=== PATIENT | female | born 1955 | race Caucasian/White ===

== ENCOUNTER → 2018-01-13 07:24 | Outpatient (CLI) | payer OTHER, SELFPAY ==
--- NOTE | 2018-01-13 07:26 | BI_ITS ---
MAMMOGRAPHY - BILATERAL SCREENING REASON FOR EXAM: Female, 62 years old. Routine annual screening examination. PERTINENT HISTORY: Non-contributory. TECHNIQUE: Digital bilateral breast curtis (3D mammographic acquisition) in the CC and MLO projections. 2-D mediolateral oblique (MLO) and craniocaudad (CC) views of both breasts were obtained. CAD: Full Field Digital Mammography with Computer Added Detection was performed. COMPARISON: Comparison is made with prior study dated October 04, 2016 and August 14, 2015. FINDINGS: Breast Composition: There are scattered areas of fibroglandular density. There are no dominant masses or suspicious calcifications. No other significant abnormalities are identified. There has been no significant change since the prior study. BI/SCREENING MAMM (CAD), BILAT IMPRESSION: Stable bilateral screening mammogram. Yearly follow-up mammogram recommended. (A) ASSESSMENT CATEGORY: BIRADS Category 1: Negative. A letter regarding these results will be sent to the patient by the facility within 30 days. Approximately 10% of breast cancers are not detected by mammography. A normal mammogram should not delay biopsy of a clinically suspicious abnormality. [id number] Electronically Signed: Mitchell Schneider MD at 9:21 EST Tel [phone], Service support ,
--- OUTSIDE RECORDS SUMMARY | 2018-03-10 01:15 | XMS RPT_ITS ---
:1955 Author Organization [facility] Care Team Providers Name Role Phone JENIFFER VILLANUEVA Referring Unavailable JENIFFER VILLANUEVA Primary Care Unavailable JENIFFER VILLANUEVA Consulting Unavailable Mitchell Clayton Attending Unavailable PROBLEMS PROBLEMS No Problem Records FoundPROCEDURES PROCEDURES No Procedure Records FoundRESULTS RESULTS SCREENING MAMM (CAD), Observed: 01/13/2018 Status: F Source: [facility] 7:27 AM [facility] [place] [place] REPOSITORY [facility] Imaging Services [address] [place] [id number] SCREENING MAMM (CAD), BIL MR#: [id number] Acct: [id number] Name: VINCE CLAYTON Rep #: [id number] : 1955 F 62 From: Mitchell Clayton MD PCP: OUT OF TOWN DOCTOR Status: REG CLI Study: SCREENING MAMM (CAD), BILAT Date of Exam: 01/13/18 Exam# [id number] Ordering Dr: Mitchell Clayton MD MAMMOGRAPHY - BILATERAL SCREENING REASON FOR EXAM: Female, 62 years old. Routine annual screening examination. PERTINENT HISTORY: Non-contributory. TECHNIQUE: Digital bilateral breast curtis (3D mammographic acquisition) in the CC and MLO projections. 2-D mediolateral oblique (MLO) and craniocaudad (CC) views of both breasts were obtained. CAD: Full Field Digital Mammography with Computer Added Detection was performed. COMPARISON: Comparison is made with prior study dated October 04, 2016 and August 14, 2015. FINDINGS: Breast Composition: There are scattered areas of fibroglandular density. There are no dominant masses or suspicious calcifications. No other significant abnormalities are identified. There has been no significant change since the prior study. BI/SCREENING MAMM (CAD), BILAT IMPRESSION: Stable bilateral screening mammogram. Yearly follow-up mammogram recommended. (A) ASSESSMENT CATEGORY: BIRADS Category 1: Negative. A letter regarding these results will be sent to the patient by the facility within 30 days. Approximately 10% of breast cancers are not detected by mammography. A normal mammogram should not delay biopsy of a clinically suspicious abnormality. [id number] Electronically Signed: Mitchell Clayton MD at 9:21 EST Tel [phone], Service support , CC: Mitchell Clayton MD; OUT OF TOWN DOCTOR Seaman: Signed LIPID PANEL Collected: 07/05/2017 Status: F Source: [facility] 10:57 AM PRIMARY CARE REPOSITORY Order Comment: Items in this order include: Urinalysis, Vit D 25 OH (Total), Lipid Panel, CBC with differential, Free T4, Comprehensive Metabolic Panel, TSH, , , , , Fastin hours TYPE CODE TESTS RESULT OUT OF REFERENCE UNITS RANGE LAB CO1(LOINC) <200 mg/dL Cholesterol 194 LAB CO2(LOINC) <150 mg/dL Triglyceride 118 LAB CO3(LOINC) >50 mg/dL HDL 54 LAB CO59(LOINC <30 mg/dl ) VLDL-Calc 24 LAB CO60(LOINC <130 mg/dL ) LDL-Calc 116 LAB CO62(LOINC <4.0 ) Chol/HDL Ratio 3.6 LAB CO63(LOINC LDL Goal + 30 ) Non-HDL Chol 140 Result Comment: LDL and Non-HDL goal dependent upon individual risk Performed By: #### C8, C47, C215, C408, C400, C3763, C304 #### [facility], IncFranco[facility] [address] [place] [address] COMPREHENSIVE METABOLIC Collected: 07/05/2017 Status: F Source: [facility] 10:57 AM PRIMARY CARE REPOSITORY Order Comment: Fastin hours TYPE CODE TESTS RESULT OUT OF REFERENCE UNITS RANGE LAB CO12(LOINC 6.3-8.4 g/dL ) T. Protein 7.5 LAB CO10(LOINC 3.5-5.0 g/dL ) Albumin 4.7 LAB CO16(LOINC 0.2-1.3 mg/dL ) Total Bili 0.5 LAB CO13(LOINC 23-159 U/L ) Alk Phos 84 LAB CO15(LOINC 11-43 U/L ) AST 30 LAB CO14(LOINC 10-52 U/L ) ALT 49 LAB CO19(LOINC 135-145 mmol/L ) Sodium 142 LAB CO20(LOINC 3.5-5.3 mmol/L ) Potassium 4.7 LAB CO22(LOINC 98-107 mmol/L ) Chloride 105 LAB CO21(LOINC 22.0-30.0 mmol/L ) CO2 22.7 LAB CO28(LOINC 74-100 mg/dL ) Glucose High 110 LAB CO25(LOINC 8.5-10.5 mg/dL ) Calcium 10.2 LAB CO23(LOINC 6-22 mg/dL ) BUN 15 LAB CO24(LOINC 0.1-1.2 mg/dL ) Creatinine 0.6 LAB CO516(LOIN >60 mL/min per C) 1.73 GFR 102 Result Comment: The GFR estimate is not adjusted for race. If the patient's race is -Bulgarian, the GFR estimate must be multiplied by a factor of 1.21. Performed By: #### C8, C47, C215, C408, C400, C3763, C304 #### [facility] [address] [place] [address] CBC WITH DIFFERENTIAL Collected: 07/05/2017 Status: F Source: [facility] 10:57 AM PRIMARY CARE REPOSITORY Order Comment: Items in this order include: Urinalysis, Vit D 25 OH (Total), Lipid Panel, CBC with differential, Free T4, Comprehensive Metabolic Panel, TSH, , , , , Fastin hours TYPE CODE TESTS RESULT OUT OF RANGE REFERENCE UNITS LAB CO81(LOINC) 3.8-10.6 K CUMM WBC 7.5 LAB CO82(LOINC) 3.80-5.10 M CUMM RBC 4.57 LAB CO83(LOINC) 11.5-15.5 g/dL HGB 13.3 LAB CO84(LOINC) 37.0-47.0 % HCT 39.4 LAB CO85(LOINC) 78.0-100.0 fL MCV 86.2 LAB CO86(LOINC) 27.0-31.0 pg MCH 29.2 LAB CO87(LOINC) 32.0-36.0 g/dL MCHC 33.8 LAB CO88(LOINC) 11.5-15.5 % RDW 13.3 LAB CO89(LOINC) 130-400 K CUMM PLT 294 LAB CO90(LOINC) 7.4-10.4 fL MPV 9.5 LAB CO91(LOINC) 40.0-74.0 % MOLLY % 59.6 LAB CO92(LOINC) 14.0-46.0 % LYMPH % 30.0 LAB CO93(LOINC) 4.0-13.0 % MONO % 8.6 LAB CO94(LOINC) 0.0-7.0 % EOS % 0.9 LAB CO95(LOINC) 0.0-3.0 % BASO % 0.9 LAB CO96(LOINC) 1.8-7.8 K CUMM MOLLY # 4.5 LAB CO97(LOINC) 0.7-4.5 K CUMM LYMPH # 2.2 LAB CO98(LOINC) 0.1-1.0 K CUMM MONO # 0.6 LAB CO99(LOINC) 0.0-0.4 K CUMM EOS # 0.1 LAB CO100(LOINC 0.0-0.2 K CUMM ) BASO # 0.1 Performed By: #### C8, C47, C215, C408, C400, C3763, C304 #### [facility] [address] [place] [address] FREE T4 Collected: 07/05/2017 Status: F Source: [facility] 10:57 AM PRIMARY CARE REPOSITORY Order Comment: Items in this order include: Urinalysis, Vit D 25 OH (Total), Lipid Panel, CBC with differential, Free T4, Comprehensive Metabolic Panel, TSH, , , , , Fastin hours TYPE CODE TESTS RESULT OUT OF RANGE REFERENCE UNITS LAB CO38(LOINC) 0.7-1.8 ng/dL Free T4 1.4 Performed By: #### C8, C47, C215, C408, C400, C3763, C304 #### [facility] [address] [place] [address] TSH Collected: 07/05/2017 Status: F Source: [facility] 10:57 AM PRIMARY CARE REPOSITORY Order Comment: Items in this order include: Urinalysis, Vit D 25 OH (Total), Lipid Panel, CBC with differential, Free T4, Comprehensive Metabolic Panel, TSH, , , , , Fastin hours TYPE CODE TESTS RESULT OUT OF RANGE REFERENCE UNITS LAB CO32(LOINC) 0.50-6.00 MIU/mL TSH 1.41 Performed By: #### C8, C47, C215, C408, C400, C3763, C304 #### [facility] [address] [place] [address] VIT D 25 OH (TOTAL) Collected: 07/05/2017 Status: F Source: [facility] 10:57 AM PRIMARY CARE REPOSITORY Order Comment: Items in this order include: Urinalysis, Vit D 25 OH (Total), Lipid Panel, CBC with differential, Free T4, Comprehensive Metabolic Panel, TSH, , , , , Fastin hours TYPE CODE TESTS RESULT OUT OF RANGE REFERENCE UNITS LAB CO246(LOINC 31.0-100.0 ng/ml ) Low Vit D 25 26.2 OH (Total) Result Comment: Deficiency <10 ng/ml Insufficiency 10-30 ng/ml Sufficiency 31-100 ng/ml Toxicity >100 ng/ml Performed By: #### C8, C47, C215, C408, C400, C3763, C304 #### [facility] [address] [place] [address] URINALYSIS Collected: 07/05/2017 Status: F Source: [facility] 10:57 AM PRIMARY CARE REPOSITORY Order Comment: Items in this order include: Urinalysis, Vit D 25 OH (Total), Lipid Panel, CBC with differential, Free T4, Comprehensive Metabolic Panel, TSH, , , , , Fastin hours TYPE CODE TESTS RESULT OUT OF RANGE REFERENCE UNITS LAB CO111(JAYDEN yellow NC) Color yellow LAB CO112(JAYDEN clear NC) Clarity Clear LAB CO113(JAYDEN negative NC) Glucose negative LAB CO114(JAYDEN negative NC) Bilirubin negative LAB CO115(JAYDEN negative NC) Ketones negative LAB CO116(JAYDEN 1.001-1.035 NC) S.G. 1.020 LAB CO117(JAYDEN negative NC) Blood negative LAB CO118(JAYDEN 5.0-9.0 NC) pH 6.0 LAB CO119(JAYDEN negative NC) Protein negative LAB CO121(JAYDEN negative NC) Urobilinogen Negative LAB CO122(JAYDEN negative NC) Nitrite negative LAB CO123(JAYDEN negative NC) Leukocytes Abnormal trace LAB CO124(JAYDEN negative;<5 NC) Urine WBC <5 LAB CO125(JAYDEN negative;<5 NC) Urine RBC <5 LAB CO126(JAYDEN Negative;occ NC) Urine Epis occ LAB CO128(JAYDEN none;occ;1+ NC) Mucous 1+ Performed By: #### C8, C47, C215, C408, C400, C3763, C304 #### [facility] [address] [place] [address] [address] [place] [address] ALLERGIES ALLERGIES No Allergies Records FoundENCOUNTERS ENCOUNTERS ADMIT/DISCHARGE ACCOUNT ADMITTING ENCOUNTER LOCATION SOURCE NUMBER CLASS 01/13/2018 [id number] Ambulatory Gifty Gifty 2 [facility] ing:OPBI Repository PAYERS PAYERS ENCOUNTER GUARANTOR PAYER SUBSCRIBER SOURCE 01/13/2018 [facility] [id number] [facility]ITALLLIDOB: [facility] [address]Mhhgqo [id number] Number: Repository [id number]: [phone] [phone] () Date:[id number] [address], [place] [address]WV: 01/13/2018 Secondary NOT GIVENUNK [place] Insurance:SELF [facility]Y [facility] Number: Effective Repository Date:2018-01-10
== END ==
PROVIDERS: Visit Provider Radiology Diagnostic Radiology
DX: Z12.31 Encounter for screening mammogram for malignant neoplasm of breast (principal)
CPT/HCPCS: 77063; 77067

== ENCOUNTER → 2019-02-09 09:23 | Outpatient (CLI) | payer OTHER, SELFPAY ==
--- NOTE | 2019-02-09 09:27 | BI_ITS ---
MAMMOGRAPHY - BILATERAL SCREENING 3-D TOMOSYNTHESIS REASON FOR EXAM: Female, 63 years old. Routine annual screening mammogram. PERTINENT HISTORY: No significant family history. TECHNIQUE: 2-D mammograms and 3-D Tomosynthesis of the breast (s) were performed. CAD was performed. COMPARISON: January 13, 2018, October 04, 2016 FINDINGS: The breast composition is almost entirely fat. Scattered benign calcifications are seen. No dense spiculated masses or suspicious microcalcifications are identified. No architectural distortion is identified. There is no skin thickening or retraction. Stable normal-appearing lymph nodes. There has been no significant change since the prior study. BI/SCREEN MAMM (CAD) W/MINDY BILAT IMPRESSION: No mammographic signs of malignancy. Routine yearly mammograms recommended. ASSESSMENT CATEGORY: BIRADS Category 2: Benign. A letter regarding these results will be sent to the patient by the facility within 30 days. FOLLOW UP RECOMMENDATION: Yearly follow up mammogram recommended. (A) Approximately 10% of breast cancers are not detected by mammography. A normal mammogram should not delay biopsy of a clinically suspicious abnormality. Electronically Signed: Alfredo Sandoval MD at 13:10 EST , Service support ,
== END ==
PROVIDERS: Referring Provider Radiology Diagnostic Radiology; Visit Provider Radiology Diagnostic Radiology
DX: Z12.31 Encounter for screening mammogram for malignant neoplasm of breast (principal)
CPT/HCPCS: 77063; 77067

== ENCOUNTER 2020-04-14 06:48 | Outpatient (RCR) | payer BC, SELFPAY | END 2020-04-14 23:59 | LOC: IMMUN 06:48 | PROVIDERS: PCP Family Medicine; Referring Provider Family Medicine; Visit Provider Family Medicine | DX: Z23 Encounter for immunization (principal) | CPT/HCPCS: 0011A; 0012A ==

== ENCOUNTER → 2022-02-11 | Outpatient (CLI) | payer SELFPAY ==
--- NOTE | 2022-02-11 09:19 | MRI_ITS ---
STUDY: MRI LUMBAR SPINE WITHOUT CONTRAST REASON FOR EXAM: Female, 66 years old. Low back pain, hip pain and spinal stenosis. TECHNIQUE: Standardized fat and water weighted pulse sequences were obtained in the sagittal and axial planes. COMPARISON: None FINDINGS: T9-T10, T10-T11, T11-T12 and T12-L1: (Sagittal only). Normal endplates. Normal disc height, hydration and morphology. No ventral extradural defects. Normal central canal and bilateral intervertebral neural foramina. Normal lumbar lordosis. There is no substantial scoliosis. Normal conus medullaris that terminates at the lower L1 vertebral body level. L1-2: Normal endplates. Normal disc height, hydration and morphology. Normal bilateral facet joints. Normal central canal and bilateral lateral recesses. Normal bilateral intervertebral neural foramina. L2-3: Normal endplates. Normal disc height. Mild ventral extradural defect due to minimal degenerative retrolisthesis of L2 on L3. Mild bilateral degenerative facet arthropathy. Mild dorsal epidural lipomatosis. Normal central canal and bilateral lateral recesses. Normal bilateral intervertebral neural foramina. L3-4: Normal endplates. Normal disc height. Mild ventral extradural defect due to mild degenerative anterolisthesis of L3 on L4 and minimal posterior bulging annulus. Moderate asymmetric degenerative facet arthropathy, right greater than left. Moderately pronounced flattening central canal stenosis with an AP canal diameter of 4.5 mm. This accounts for the redundancy of the cauda equina above and below it. Normal bilateral lateral recesses. Normal bilateral intervertebral neural foramina. L4-5: Mild Modic type I degenerative vertebral marrow edema underneath the right half of the vertebral endplates. Pronounced disc space height narrowing. Grade 1 degenerative anterolisthesis of L4 on L5. Pronounced right degenerative facet arthropathy. Moderately pronounced left degenerative facet arthropathy. Prominent left posterior ligamentum flavum hypertrophy. Severe central canal stenosis with a transverse canal diameter of 3.4 mm. Severe stenosis of the right lateral recess. Normal left lateral recess. Moderate stenosis of the right intervertebral neural foramen. Mild stenosis of the left intervertebral neural foramen. L5-S1: Normal endplates. Normal disc height, hydration and morphology. Moderately pronounced left degenerative facet arthropathy. Mild right degenerative facet arthropathy. Normal central canal and bilateral lateral recesses. Mild stenosis of the left intervertebral neural foramen. Normal right intervertebral neural foramen. Normal visualized sacral ala. Normal visualized paraspinous soft tissue structures. MRI/Spine Lumbar (Routine) IMPRESSION: 1. Severe central canal stenosis at L4-L5 disc space level with a transverse canal diameter of 3.4 mm, severe stenosis of the right lateral recess, moderate stenosis of the right intervertebral neural foramen, pronounced right degenerative facet arthropathy, moderately pronounced left degenerative facet arthropathy, grade 1 degenerative anterolisthesis of L4 on L5 and right-sided intervertebral osteochondritis (Modic type I). 2. Moderately pronounced flattening central canal stenosis at L3-L4 disc space level with an AP canal diameter of 4.5 mm, mild degenerative anterolisthesis of L3 on L4 and minimal posterior bulging annulus. 3. Minimal degenerative retrolisthesis of L2 on L3. 4. No MRI evidence of lumbar extruded disc fragment. Electronically Signed: Yoel Null MD at 10:26 EST ,
--- NOTE | 2022-02-11 12:33 | BI_ITS ---
MAMMOGRAPHY - BILATERAL SCREENING REASON FOR EXAM: Female, 66 years old. Routine annual screening examination. PERTINENT HISTORY: Non-contributory. History of prior bilateral breast reduction. TECHNIQUE: Digital bilateral breast mindy (3D mammographic acquisition) in the CC and MLO projections. 2-D mediolateral oblique (MLO) and craniocaudad (CC) views of both breasts were obtained. CAD: Full Field Digital Mammography with Computer Added Detection was performed. COMPARISON: Comparison is made with prior study dated 11/10/2018 and 01/13/2018. FINDINGS: Breast Composition: The breasts are almost entirely fatty. There are no dominant masses or suspicious calcifications. The patient is status post bilateral breast reduction surgery. No other significant abnormalities are identified. There has been no significant change since the prior study. BI/SCRN MAMM (CAD)W/MINDY BILAT IMPRESSION: Stable bilateral screening mammogram. Yearly follow-up mammogram recommended. (A) ASSESSMENT CATEGORY: BIRADS Category 2: Benign. A letter regarding these results will be sent to the patient by the facility within 30 days. Approximately 10% of breast cancers are not detected by mammography. A normal mammogram should not delay biopsy of a clinically suspicious abnormality. [id number] Electronically Signed: Mitchell Schneider MD at 8:49 EST ,
--- NOTE | 2022-02-11 12:38 | BD_ITS ---
STUDY: DUAL ENERGY X-RAY ABSORPTIOMETRY / DXA REASON FOR EXAM: Female, 66 years old. M85.89 TECHNIQUE: Bone Mineral Density (BMD) measurements of lumbar spine and bilateral hips were obtained. COMPARISON: Comparison is made with prior study dated 12/02/2011. FINDINGS: Lumbar Spine (L1-L4): g/cm2 (0.893) / T-score (-1.4) / Z-score (0.4) Findings are suggestive of osteopenia with a low fracture risk. Left Femur Total: g/cm2 (0.788) / T-score (-1.3) / Z-score (0.0) Left Femoral Neck: g/cm2 (0.649) / T-score (-1.8) / Z-score (-0.3) Right Femur Total: g/cm2 (0.758) / T-score (-1.5) / Z-score (-0.3) Right Femoral Neck: g/cm2 (0.588) / T-score (-2.4) / Z-score (-0.8) The T-Scores on the most recent prior examination were: Lumbar Spine (L1-L4): There has been worsening of bone density since the previous examination. Left Femur Total: which represents a worsening of 0.1%. Right Femur Total: which represents a worsening of 9.1%. BD/Dexa Bone Density Study IMPRESSION: The patient is considered osteopenic as outlined below according to World Kei Organization (WHO) criteria with a high fracture risk. There has been worsening of bone density since the previous examination. Reference Information: The T-score is the number of standard deviations above or below the standard which is normal for young adults at their peak bone mineral density. The World Health Organization (WHO) interprets the T-scores as follows: Above -1 Normal bone density Between -1 and -2.5 Osteopenia Equal to / or below -2.5 Osteoporosis As a practical clinical guideline, osteopenia may be graded as follows: Mild -1 through -1.5 Moderate -1.6 through -2.0 Severe -2.1 through -2.4 The Z-score is the number of standard deviations above or below age-matched controls. A Z-score of less than -1.5 would be considered abnormal. References: 1. NIH Osteoporosis and Related Bone Diseases www osteo.org 2. International Society for Clinical Densitometry www iscd.org 3. National Osteoporosis Foundation www nof.org Electronically Signed: Mitchell Schneider MD at 10:32 EST ,
== END | disposition home or self-care (01) ==
PROVIDERS: PCP Family Medicine
DX: Z12.31 Encounter for screening mammogram for malignant neoplasm of breast (principal); M54.50 Low back pain, unspecified; M25.559 Pain in unspecified hip; M48.00 Spinal stenosis, site unspecified; M85.89 Other specified disorders of bone density and structure, multiple sites
CPT/HCPCS: 72148; 77063; 77067; 77080

== ENCOUNTER → 2024-05-09 | Outpatient (CLI) | payer OTHER, SELFPAY ==
--- NOTE | 2024-05-09 09:20 | BI_ITS ---
EXAM: SCRN MAMM (CAD)W/MINDY BILAT DATE: 05/09/2024 CLINICAL HISTORY: F, Age 68 y/o , SCREENING. Prior bilateral breast reduction surgery. BREAST CANCER RISK ASSESSMENT: Average risk is less than 15%. Annual 3D screening mammography is recommended based on this risk, beginning at age 40. TECHNIQUE: Bilateral screening digital breast tomosynthesis with 2D and 3D images. Computer aided detection. COMPARISON: Prior exam(s) dated February 11, 2022.. FINDINGS: TISSUE DENSITY: The breast tissue is almost entirely fatty. Bilateral Breast Mammographic Findings: No significant masses, calcifications or other abnormalities are identified. BI/SCRN MAMM (CAD)W/MINDY BILAT IMPRESSION: Right Breast: BIRADS 1 NEGATIVE. Left Breast: BIRADS 1 NEGATIVE. OVERALL FINAL ASSESSMENT: BIRADS 1 NEGATIVE RECOMMENDATION: Routine annual follow-up in 1 Year A letter with findings and recommendations will be mailed to the patient. Reading Location: [place] [address]
--- NOTE | 2024-05-09 09:36 | BD_ITS ---
EXAM: DEXA BONE DENSITY STUDY 05/09/2024 REASON FOR EXAM: F,68 y/o patient is postmenopausal. TECHNIQUE: DXA scan of the lumbar spine and right hip were obtained. REFERENCE LINKS: ISCD Pediatric Positions ISCD Adult Positions COMPARISON: Comparison is made with prior study dated February 11, 2022. FINDINGS: BMD and Z-SCORES Lumbar spine: 0.828 g/cm2, Z-Score -1.7 L1 through L4 Change from prior: Loss of 2.4% Right femoral neck: 0.554 g/cm2, Z-Score -2.7 Femoral neck comparison data not recommended for monitoring change. Right total hip: 0.738 g/cm2, Z-Score -1.7 Change from prior: Loss of 2.7% The patient does meet the pharmacological treatment recommendations for prevention of osteoporosis BD/Dexa Bone Density Study IMPRESSION: Osteopenia with moderate fracture risk. Recommend follow-up, in 2 years. Reading Location: [place] [address]
== END | disposition home or self-care (01) ==
PROVIDERS: Referring Provider Radiology Diagnostic Radiology; Visit Provider Radiology Diagnostic Radiology
DX: Z12.31 Encounter for screening mammogram for malignant neoplasm of breast (principal); M81.0 Age-related osteoporosis without current pathological fracture
CPT/HCPCS: 77063; 77067; 77080